=== PATIENT | female | born 1955 | race Caucasian/White ===

== ENCOUNTER 2017-07-31 17:17 | Emergency (ER) | payer BC ==
[2017-07-31 18:08] VITALS: BP 142/74
--- NOTE | 2017-07-31 20:00 | EDM.PDOC ---
ED HPI GENERAL MEDICAL PROBLEM - General Chief Complaint: Flank Pain Stated Complaint: PAIN IN BACK/FRONT LEFT LOWER, [id number] Time Seen by Provider: 07/31/17 19:03 Source of Information: Reports: Patient History Limitations: Reports: No Limitations - History of Present Illness INITIAL COMMENTS - FREE TEXT/NARRATIVE: patient comes emergency department today with complaints of left flank and left lower abdominal pain that started approximately 1630 hrs. Today at that time the patient developed sudden left-sided flank pain that radiated around into her left lower abdomen and groin area. The pain was sharp shooting stabbing and squeezing in nature. It lasted for a couple of hours and then resolved on its own. She has some residual pain of approximately 1/10. Her pain was a 10 out of 10 when she was having a couple hours ago. She did have some nausea at that time as well. No vomiting. No hematuria dysuria or urinary frequency. No fever no chills. No abdominal pain at this time. She did have a similar episode to this approximately 2 weeks ago that resolved on its own and only lasted for about 15-20 minutes. Left Flank Pain Score (Numeric/FACES): 5 - Related Data Allergies Allergy/AdvReac Type Severity Reaction Status Date / Time alendronate sodium Allergy Pain Verified 07/31/17 18:02 [From Fosamax] codeine Allergy Nausea Verified 07/31/17 18:02 meperidine HCl [From Demerol] Allergy Nausea Verified 07/31/17 18:02 dust Allergy Other Uncoded 07/31/17 18:02 Home Meds: Home Meds Aspirin [Ecotrin] 1 tab PO DAILY 06/30/14 [History] Atenolol [Tenormin] 1 tab PO DAILY 06/30/14 [History] Calcium Carb & Citrate/Vit D3 [Calcium + Vitamin D3 Caplet] 1 tab PO DAILY 06/30 [History] Cyclobenzaprine [Flexeril] 0.5 tab PO DAILY 06/30/14 [History] Fish Oil/Applegate-3 Fatty Acids [Fish Oil 1,000 MG] 1 tab PO DAILY 06/30/14 [ History] Bqzzmega-Imduamj-Ebag 149-Hyal [Glucosamine Chondroitin Complx] 1 tab PO DAILY 06/30/14 [History] Meclizine [Antivert] 1 tab PO TID PRN 06/30/14 [History] Multivitamin [Multivitamins] 1 tab PO DAILY 06/30/14 [History] Omeprazole [Prilosec] 1 tab PO DAILY 06/30/14 [History] Simvastatin [Simvastatin] 1 tab PO BEDTIME 06/30/14 [History] Doxycycline [Vibramycin] 50 mg PO DAILY 10/25/16 [History] cycloSPORINE [Restasis] 2 drop EYEBOTH TID 10/25/16 [History] Past Medical History Cardiovascular History: Reports: High Cholesterol, Hypertension Neurological History: Reports: Migraines - Past Surgical History Female Surgical History: Reports: Section Social & Family History - Family History Family Medical History: Noncontributory - Tobacco Use Smoking Status *Q: Never Smoker Second Hand Smoke Exposure: No - Caffeine Use Caffeine Use: Reports: Soda - Alcohol Use Days Per Week of Alcohol Use: 1 Number of Drinks Per Day: 2 Total Drinks Per Week: 2 - Recreational Drug Use Recreational Drug Use: No ED ROS GENERAL - Review of Systems Review Of Systems: ROS reveals no pertinent complaints other than HPI. ED EXAM, RENAL/ - Physical Exam Exam: See Below Exam Limited By: No Limitations General Appearance: Alert, WD/WN, No Apparent Distress Ears: Normal External Exam Nose: Normal Inspection, Normal Mucosa Throat/Mouth: Normal Inspection, Normal Lips Head: Atraumatic, Normocephalic Neck: Normal Inspection, Supple Respiratory/Chest: No Respiratory Distress, Lungs Clear, No Accessory Muscle Use Cardiovascular: Normal Peripheral Pulses, Regular Rate, Rhythm GI/Abdominal: Normal Bowel Sounds, Soft, No Organomegaly, No Distention, No Abnormal Bruit, No Mass, Tender (mild tenderness to the left lower quadrant. No guarding no rebound tenderness.) (Female) Exam: Deferred Rectal (Female) Exam: Deferred Back Exam: Full Range of Motion, CVA Tenderness (R). No: CVA Tenderness (L) Extremities: Normal Inspection, Normal Range of Motion Neurological: Alert, Oriented, CN II-XII Intact Psychiatric: Normal Affect Skin Exam: Warm, Dry, Intact, Normal Color Lymphatic: No Adenopathy Course - Vital Signs Last Recorded V/S: Last Vital Signs Temp 36.6 C 07/31/17 18:05 Pulse 72 07/31/17 18:05 Resp 16 07/31/17 18:05 BP 142/74 H 07/31/17 18:05 Pulse Ox 100 10/23/17 18:05 - Orders/Labs/Meds Orders: Active Orders 24 hr Category Date Time Status CULTURE URINE [RM] Stat Lab 07/31/17 18:07 Received Labs: Laboratory Tests 07/31/17 Range/Units 18:07 Urine Color Yellow (YELLOW) Urine Appearance Turbid (CLEAR) Urine pH 5.0 (5.0-9.0) Ur Specific [place] 1.025 (1.005-1.030) Urine Protein Negative (NEGATIVE) Urine Glucose (UA) Negative (NEGATIVE) Urine Ketones Negative (NEGATIVE) Urine Occult Blood Large H (NEGATIVE) Urine Nitrite Negative (NEGATIVE) Urine Bilirubin Negative (NEGATIVE) Urine Urobilinogen 0.2 (0.2-1.0) mg/dL Ur Leukocyte Esterase Trace H (NEGATIVE) Urine RBC >100 H /HPF Urine WBC 5-10 H (0-5/HPF) /HPF Ur Epithelial Cells Few /HPF Urine Bacteria Rare (0-FEW/HPF) /HPF Urine Mucus Many H /LPF Urine Yeast Few H (0/HPF) /HPF - Radiology Interpretation Free Text/Narrative:: 2mm mildly obstructing stone at the left ureterovesicular junction. No hydronephrosis. 5 nonobstructing stones in the right renal sinus. - Re-Assessments/Exams Free Text/Narrative Re-Assessment/Exam: 07/31/17 20:19 I explained to the patient that looking at her urinalysis with quite a bit of blood this is most likely a kidney stone. Which has already passed into the bladder most likely as her pain is resolved. To ensure that her pain was caused by kidney stone will do a quick CT scan to rule out any other pathology of the hematuria. We'll also culture her urine as this is most likely a contaminant with the leukocytes in the small amount of WBCs. She denies anything for pain at this time. CT abdomen pelvis without contrast. Reviewed extemporaneously by myself. I do identify a calculi in the bladder as well as calculi in the right and left kidney. Question a stone on the left ureter near UVJ. I discussed the results of the CT scan with the patient. Her questions were answered. I will put her on a short course of Flomax at this time to help with ureteral spasms as well as the possibility of kidney stones in the very near future with them currently in the kidney bilaterally. follow-up with primary care provider for long-term management planning. She was kept with this plan and her questions were answered. 07/31/17 20:39 Departure - Departure Time of Disposition: 19:55 Disposition: Home, Self-Care 01 Condition: Good Clinical Impression: Kidney stone - Discharge Information Instructions: Kidney Stones, [id number] Referrals: Suzy Ariza PA [Primary Care Provider] - Forms: ED Department Discharge Additional Instructions: Increase fluids over the next few days. Tylenol and or Ibuprofen as needed for pain. Regular doses of Ibuprofen I would recommend. If pain not controlled with above, [place] 5/325 1 tablet every 6 hrs with food as needed for pain. Keep around incase the next stone comes soon. Caution sedation. Flomax 0.4mg every bedtime for the next 7 days. Return to the ED if new or worsening symptoms. Follow up with primary care provider in the next 4-6 days if not improving sooner if worse. - My Orders Last 24 Hours: My Active Orders 07/31/17 18:07 CULTURE URINE [RM] Stat - Assessment/Plan Last 24 Hours: My Active Orders 07/31/17 18:07 CULTURE URINE [RM] Stat Assessment:: Kidney Stone already into the bladder, Stones in bilateral kidneys as well. Plan: Increase fluids over the next few days. Tylenol and or Ibuprofen as needed for pain. Regular doses of Ibuprofen I would recommend. If pain not controlled with above, [place] 5/325 1 tablet every 6 hrs with food as needed for pain. Keep around incase the next stone comes soon. Caution sedation. Flomax 0.4mg every bedtime for the next 7 days. Return to the ED if new or worsening symptoms. Follow up with primary care provider in the next 4-6 days if not improving sooner if worse.
== END 2017-07-31 20:02 | disposition home or self-care (01) ==
LOC: DL.ED 17:17
DX: N20.0 Calculus of kidney (principal); I10 Essential (primary) hypertension; Z88.5 Allergy status to narcotic agent; Z88.8 Allergy status to other drugs, medicaments and biological substances; Z79.82 Long term (current) use of aspirin; Z79.899 Other long term (current) drug therapy
CPT/HCPCS: 74176; 81001; 87086; 87088; 87186; 99284